=== PATIENT | male | born 1960 | race Hispanic/Latino ===

== ENCOUNTER 2018-01-14 12:49 | Observation (INO) | payer BC ==
[~2018-01-14] VITALS: Ht 177.8 cm; Wt 118.2 kg
[2018-01-14 13:52] LABS: BASOPHILS % (AUTO) 0.5 % (0.0-5.0); EOSINOPHILS % (AUTO) 18.2 % (0.0-8.0); HEMATOCRIT 34.1 % (42-54); MEAN CORPUSCULAR HEMOGLOBIN 28.9 pg (27.0-33.0); MONOCYTES % (AUTO) 8.9 % (3.0-13.0); NEUTROPHILS % (AUTO) 56.4 % (40.0-77.0); PLATELET COUNT (AUTO) 203 K/uL (130-400); RED BLOOD CELL COUNT(AUTO) 4.01 MIL/uL (4.50-6.20); RED CELL DISTRIBUTION WIDTH 13.3 % (11.0-15.5); WHITE BLOOD COUNT (AUTO) 7.8 K/uL (4.8-10.8)
[2018-01-14 14:01] LABS: INR 1.15 (0.85-1.15); PARTIAL THROMBOPLASTIN TIME 26.9 SEC (26.3-35.5)
[2018-01-14] MEDS ORDERED: DIGOXIN 250 MCG/ML 2ML AMP ONE (14:06)
[2018-01-14 14:11] LABS: CREATINE KINASE MB 1.2 ng/mL (0.5-3.6)
[2018-01-14 19:00] VITALS: BP 124/95
[2018-01-14 22:22] VITALS: BP 116/79
[2018-01-15] VITALS (15 sets, daily range): BP systolic 106–139; BP diastolic 70–115
[2018-01-15] MEDS ORDERED: OMEG-125 PO (00:37)
[2018-01-15] MEDS ORDERED: DILT240C50 PO (00:37)
[2018-01-15] MEDS ORDERED: GLIP10TA9 PO (00:37)
[2018-01-15] MEDS ORDERED: PIOG45TA17 PO (00:37)
[2018-01-15] MEDS ORDERED: METO75TA PO (00:37)
[2018-01-15] MEDS ORDERED: LOSA50TA37 PO (00:37)
[2018-01-15] MEDS ORDERED: RIVA20TA PO (00:37)
[2018-01-15] MEDS ORDERED: ATOR10TA69 PO (00:37)
[2018-01-15] MEDS ORDERED: DEXTROSE 50%-WATER 50 ML DISP.SYRIN IV PRN (01:00)
[2018-01-15] MEDS ORDERED: ACETAMINOPHEN-CODEINE 300/30MG TAB PO PRN ×2 (01:00)
[2018-01-15] MEDS ORDERED: LIDOCAINE HCL-MPF 1% 2ML VIAL IVP PRN (01:00)
[2018-01-15] MEDS ORDERED: POTASSIUM CHLORIDE 20 MEQ ERTAB PO PRN (01:00)
[2018-01-15] MEDS ORDERED: GLUCAGON 1MG KIT 1 MG ML IM PRN (01:00)
[2018-01-15] MEDS ORDERED: POTASSIUM CHLORIDE 10% ELIXIR 20 MEQ/15 ML UDCUP PO PRN (01:00)
[2018-01-15] MEDS ORDERED: POTASSIUM CHLORIDE 20MEQ/100ML 100 ML IV PRN (01:00)
[2018-01-15 04:21] LABS: MEAN CORPUSCULAR HEMOGLOBIN 29.7 pg (27.0-33.0); MEAN CORPUSCULAR HGB CONC 34.9 g/dL (32.0-36.0); MEAN CORPUSCULAR VOLUME 84.9 fL (79-99); PLATELET COUNT (AUTO) 197 K/uL (130-400); RED BLOOD CELL COUNT(AUTO) 3.89 MIL/uL (4.50-6.20); RED CELL DISTRIBUTION WIDTH 13.2 % (11.0-15.5); WHITE BLOOD COUNT (AUTO) 8.4 K/uL (4.8-10.8)
[2018-01-15 04:27] LABS: CARBON DIOXIDE 30 mmol/L (21-32); CHLORIDE 104 mmol/L (101-111); CREATININE 1.1 mg/dL (0.5-1.5); GLOMERULAR FILTR. RATE CALC 73 mL/min (>60); GLUCOSE,RANDOM 167 mg/dL (70-105); SODIUM SERUM 140 mmol/L (136-145); UREA NITROGEN, BLOOD 17 mg/dL (7-18)
[2018-01-15 04:30] LABS: INR 1.14 (0.85-1.15); PARTIAL THROMBOPLASTIN TIME 26.1 SEC (26.3-35.5); PROTHROMBIN TIME 11.9 SEC (9.6-11.6)
[2018-01-15 04:52] LABS: CREATINE KINASE MB 0.9 ng/mL (0.5-3.6); CREATINE KINASE, TOTAL 54 U/L (21-232); MYOGLOBIN 45 ng/mL (10-92); TROPONIN I < 0.04 ng/mL (0.00-0.06)
[2018-01-15] MEDS: INSULIN HUMULIN R 100 UNIT/ML 3ML SQ SCH ×4 (06:30→20:36)
[2018-01-15] MEDS: FAMOTIDINE 20MG TAB 20 MG TAB PO SCH ×2 (09:00→20:33)
[2018-01-15] MEDS ORDERED: CARVEDILOL 3.125 MG TABLET PO SCH (09:00)
[2018-01-15] MEDS: ASPIRIN 81 MG EC TAB PO SCH (09:00)
[2018-01-15] MEDS ORDERED: ENOXAPARIN SODIUM 40 MG/0.4 ML SYRINGE SQ SCH (09:00)
[2018-01-15] MEDS ORDERED: MIDAZOLAM HCL 1 MG/ML 2ML VIAL ONE ×4 (09:57→15:26)
[2018-01-15] MEDS ORDERED: MIDAZOLAM HCL 1 MG/ML 2ML VIAL IV SCH (10:00)
[2018-01-15] MEDS ORDERED: FENTANYL CITRATE PF 50 MCG/1 ML 2ML VIAL IVP SCH (10:00)
[2018-01-15] MEDS ORDERED: BENZOCAINE 20% 57 GM SPRAY TP SCH (10:00)
[2018-01-15] MEDS ORDERED: HEPARIN SODIUM 1000UNIT/ML 10ML VIAL ONE ×2 (14:08→17:19)
[2018-01-15] MEDS ORDERED: MEPERIDINE-PF 50 MG/ML SYG ONE ×2 (14:08→15:26)
[2018-01-15] MEDS ORDERED: LIDOCAINE HCL 2% 20ML ONE (14:08)
[2018-01-15] MEDS: METOPROLOL TARTRATE 25 MG TAB PO SCH (20:34)
[2018-01-15] MEDS: APIXABAN 5 MG TABLET PO SCH (20:34)
[2018-01-15] MEDS ORDERED: ATORVASTATIN CALCIUM 10 MG TABLET PO SCH (21:00)
[2018-01-16 03:55] VITALS: BP 110/56
[2018-01-16] MEDS: INSULIN HUMULIN R 100 UNIT/ML 3ML SQ SCH ×2 (06:39→11:30)
[2018-01-16 07:00] VITALS: BP 131/79
[2018-01-16] MEDS ORDERED: GLIPIZIDE XL 5MG TAB PO SCH (08:00)
[2018-01-16] MEDS ORDERED: FISH OIL 1000 MG/CAP PO SCH (09:00)
[2018-01-16] MEDS ORDERED: LOSARTAN 50 MG TABLET PO SCH (09:00)
[2018-01-16] MEDS ORDERED: DILTIAZEM HCL 120 MG CAP.SR.24H PO SCH (09:00)
[2018-01-16] MEDS ORDERED: PIOGLITAZONE HCL 45 MG TAB PO SCH (09:00)
[2018-01-16] MEDS: APIXABAN 5 MG TABLET PO SCH (09:20)
[2018-01-16] MEDS: METOPROLOL TARTRATE 25 MG TAB PO SCH (09:20)
[2018-01-16] MEDS: ASPIRIN 81 MG EC TAB PO SCH (09:21)
[2018-01-16] MEDS: FAMOTIDINE 20MG TAB 20 MG TAB PO SCH (09:25)
[2018-01-16 11:18] VITALS: BP 129/81
== END 2018-01-16 15:00 | disposition home or self-care (01) ==
LOC: EDH 12:49 → EDHIP 12:50 → 2DH 01-15 01:49
PROVIDERS: ADMIT Family Medicine; ATTEND Family Medicine
DX: R55 Syncope and collapse (principal); I48.3 Typical atrial flutter; I10 Essential (primary) hypertension; E78.5 Hyperlipidemia, unspecified; E11.9 Type 2 diabetes mellitus without complications; Z82.49 Family history of ischemic heart disease and other diseases of the circulatory system
CPT/HCPCS: 36415 ×2; 71045; 80048; 82550 ×2; 82553 ×2; 82948 ×6; 83874; 83880; 84484 ×2; 85025; 85027; 85610 ×2; 85730 ×2; 93005 ×3; 93308; 93312; 93613; 93621; 93653; 96372; 96374; 99285; A4649; C1730 ×3; C1732; C1893; C1894 ×3; G0378 ×50; J1160; J1644 ×2; J1815; J2175 ×2; J2250 ×4; J3010; J3490; 99152; 99153

== ENCOUNTER → 2018-02-11 | Outpatient (CLI) | payer BC ==
[~2018-02-11] MED LIST: ATOR10TA69 PO; DILT240C50 PO; GLIP10TA9 PO; LOSA50TA37 PO; METO75TA PO; OMEG-125 PO; PIOG45TA64 PO; RIVA20TA PO
== END ==
LOC: SHCH 08:33
PROVIDERS: ATTEND Internal Medicine Cardiovascular Disease
DX: Q21.1 Atrial septal defect (principal); I48.3 Typical atrial flutter
CPT/HCPCS: 93306

== ENCOUNTER → 2018-03-26 | Outpatient (CLI) | payer BC | END | disposition home or self-care (01) | LOC: SHCH 14:24 | PROVIDERS: ATTEND Internal Medicine Cardiovascular Disease | DX: I87.2 Venous insufficiency (chronic) (peripheral) (principal) | CPT/HCPCS: 93970 ==

== ENCOUNTER → 2018-05-04 | Outpatient (CLI) | payer BC | END | disposition home or self-care (01) | LOC: SHCH 11:21 | PROVIDERS: ATTEND Internal Medicine Cardiovascular Disease | DX: Z09 Encounter for follow-up examination after completed treatment for conditions other than malignant neoplasm (principal) | CPT/HCPCS: 93971 ==

== ENCOUNTER → 2018-05-11 | Outpatient (CLI) | payer BC | END | disposition home or self-care (01) | LOC: SHCH 09:35 | PROVIDERS: ATTEND Internal Medicine Cardiovascular Disease | DX: Z09 Encounter for follow-up examination after completed treatment for conditions other than malignant neoplasm (principal) | CPT/HCPCS: 93971 ==

== ENCOUNTER → 2018-09-10 | Outpatient (CLI) | payer BC ==
[~2018-09-10] MED LIST changes: +LOSA50TA25 PO; -LOSA50TA37 PO
== END | disposition home or self-care (01) ==
LOC: SHCH 11:47
PROVIDERS: ATTEND Internal Medicine Cardiovascular Disease
DX: I87.2 Venous insufficiency (chronic) (peripheral) (principal)
CPT/HCPCS: 93970

== ENCOUNTER → 2018-10-14 | Outpatient (CLI) | payer BC | END | disposition home or self-care (01) | LOC: SHCH 09:50 | PROVIDERS: ATTEND Internal Medicine Cardiovascular Disease | DX: I51.7 Cardiomegaly (principal); I20.9 Angina pectoris, unspecified | CPT/HCPCS: 93306 ==

== ENCOUNTER → 2018-10-15 | Outpatient (CLI) | payer BC ==
[2018-10-15] MEDS: REGADENOSON 0.4 MG/5 ML PF SYG IVP SCH ×2 (09:41→11:55)
== END | disposition home or self-care (01) ==
LOC: SHCH 08:05
PROVIDERS: ATTEND Internal Medicine Cardiovascular Disease
DX: R06.09 Other forms of dyspnea (principal); R07.9 Chest pain, unspecified
CPT/HCPCS: 78452; 93017; 96374; A9500 ×2; J2785

== ENCOUNTER → 2020-04-18 | Outpatient (CLI) | payer BC ==
[~2020-04-18] MED LIST changes: -LOSA50TA25 PO; +LOSA50TA64 PO
== END | disposition home or self-care (01) ==
LOC: SHCH 10:10
PROVIDERS: ATTEND Internal Medicine Cardiovascular Disease
DX: I89.0 Lymphedema, not elsewhere classified (principal)
CPT/HCPCS: 93970

== ENCOUNTER 2024-10-01 09:05 | Day surgery (SDC) | payer BC ==
[2024-09-29 14:01] LABS: BASOPHILS # (AUTO) 0.03 K/uL (0.00-0.20); BASOPHILS % (AUTO) 0.5 % (0.0-5.0); EOSINOPHILS # (AUTO) 0.69 K/uL (0.00-0.70); EOSINOPHILS % (AUTO) 10.9 % (0.0-8.0); HEMATOCRIT 35.3 % (42-54); IMMATURE GRANULOCYTE ABSOLUTE 0.02 K/uL (0-1); MEAN CORPUSCULAR HEMOGLOBIN 28.6 pg (27.0-33.0); MEAN CORPUSCULAR HGB CONC 30.9 g/dL (32.0-36.0); MEAN CORPUSCULAR VOLUME 92.7 fL (79-99); MONOCYTES # (AUTO) 0.6 K/uL (0.1-1.0); MONOCYTES % (AUTO) 9.5 % (3.0-13.0); NEUTROPHILS # (AUTO) 4.1 K/uL (1.8-7.7); NEUTROPHILS % (AUTO) 63.8 % (40.0-77.0); PLATELET COUNT (AUTO) 162 K/uL (130-400); RED BLOOD CELL COUNT(AUTO) 3.81 MIL/uL (4.50-6.20); WHITE BLOOD COUNT (AUTO) 6.3 K/uL (4.8-10.8)
[2024-09-29 14:08] LABS: CREATININE 1.4 mg/dL (0.5-1.3); POTASSIUM 5.4 mmol/L (3.5-5.1)
[2024-09-29 14:17] LABS: INR 1.21 (0.85-1.15); PROTHROMBIN TIME 12.9 SEC (9.6-11.6)
[2024-09-29 14:18] LABS: PARTIAL THROMBOPLASTIN TIME 28.5 SEC (26.3-35.5)
[2024-09-29 14:54] VITALS: BP 142/76; PULSE 111; RESP 18; TEMP 98.6
--- NOTE | 2024-09-30 14:43 | NUR ---
RE: LABS REPORTED BMP RESULTS TO DIA RIOS. RECEIVED ORDERS TO REPEAT BMP IN AM.
[~2024-10-01] VITALS: Ht 177.8 cm; Wt 134.4 kg
[2024-10-01] VITALS (16 sets, daily range): BP systolic 90–142; BP diastolic 53–83; PULSE 62–112; RESP 15–18; TEMP 97–97.9
[~2024-10-01 09:05] MED LIST changes: +APIX5TAB PO; -DILT240C50 PO; +FERR-82 PO; +GLIP10TA16 PO; -GLIP10TA9 PO; +KRIL500C PO; +LEVO75CA5 PO; -LOSA50TA64 PO; +METO-391 PO; -METO75TA PO; -OMEG-125 PO; -RIVA20TA PO
[2024-10-01] MEDS ORDERED: 0.9%NACL 1000ML 1,000 ML IV ONE (10:28)
[2024-10-01] MEDS ORDERED: FENTanyl CITRate PF 50 MCG/1 ML 5ML AMP IV ONE (10:40)
[2024-10-01] MEDS ORDERED: proPOFol 10 MG/ML 20ML VIAL IV ONE (10:40)
[2024-10-01] MEDS ORDERED: SUCCINYLCHOLINE CHLORIDE 20 MG/ML 10 ML VIAL ONE (10:40)
[2024-10-01] MEDS ORDERED: MIDAZOLAM HCL 1 MG/ML 2ML VIAL ONE (10:40)
[2024-10-01] MEDS ORDERED: rocuRONium bROMide 10MG/1ML 5ML VL ONE (10:40)
[2024-10-01] MEDS ORDERED: dexaMETHasone SOD PHOSPHATE 4 MG/ML 1ML VIAL ONE (10:41)
[2024-10-01] MEDS ORDERED: ondanSETRON 4MG INJ ONE (10:43)
[2024-10-01] MEDS ORDERED: phenylEPHRINE HCL 10 MG/ML 1ML VIAL IV ONE (10:43)
[2024-10-01] MEDS ORDERED: GLYCOPYRROLATE 0.2 MG/ML 5 ML VIAL ONE (10:44)
[2024-10-01] MEDS ORDERED: NEOSTIGMINE METHYLSULFATE 1MG/ML IV ONE (10:44)
[2024-10-01] MEDS ORDERED: HEParin-NS 1,000 UNIT/500 ML 1,500 ML IV ONE (11:09)
[2024-10-01] MEDS ORDERED: HEParin 10,000 UNIT/10ML (1,000 UNIT/ML) VIAL ONE (11:09)
[2024-10-01] MEDS ORDERED: LIDOCAINE HCL 400MG/20ML VIAL ONE (11:09)
[2024-10-01] MEDS ORDERED: ATROPINE 0.4MG VIAL IJ ONE (12:57)
--- NOTE | 2024-10-01 21:41 | EKG ---
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
--- NOTE | 2024-10-01 21:44 | EKG ---
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
== END 2024-10-01 15:49 | disposition home or self-care (01) ==
LOC: DAH 09:05
PROVIDERS: ATTEND Internal Medicine Cardiovascular Disease
DX: I48.3 Typical atrial flutter (principal); I25.10 Atherosclerotic heart disease of native coronary artery without angina pectoris; R55 Syncope and collapse; I49.1 Atrial premature depolarization; E78.5 Hyperlipidemia, unspecified; I10 Essential (primary) hypertension; I45.19 Other right bundle-branch block; E11.9 Type 2 diabetes mellitus without complications; Z82.49 Family history of ischemic heart disease and other diseases of the circulatory system; Z98.890 Other specified postprocedural states; Z79.899 Other long term (current) drug therapy
CPT/HCPCS: 80048; 85025; 85610; 85730; 36415; 93653; 93005 ×2; J1100; C1894 ×2; C1732 ×2; A4649 ×2; C1760 ×2; J3010; J3490 ×3; J0330; J7030; J0461; J1644 ×2; J2250; J2704; J2405; J2710; J2371; A4215; A4222; A4221; A4663; A4216; A4606; A4223 ×3